=== PATIENT | female | born 1980 | race Caucasian/White ===

== ENCOUNTER 2016-12-03 10:53 | Observation (INO) | payer OTHER ==
[~2016-12-03] VITALS: Ht 165.1 cm; Wt 81.8 kg
[2016-12-03] MEDS: Doxycycline Inj 100 MG in Dextrose 5% Minibag Plus 100 ML IV SCH ×2 (04:00→16:00)
[2016-12-03 10:55] VITALS: BP 118/84; PULSE 72; RESP 16; O2SAT 100
--- NOTE | 2016-12-03 11:19 | ED.REPORT ---
HPI-Abd Pain F Under 40 Date of Service Dec 03, 2016 ED Provider: Winston Hercules DO Pt is a 36 year old female with a hx of ovarian cyst and miscarriage presenting to the ED complaining of intermittent RLQ sharp abd pain onset 1 week ago worsened today. Denies diarrhea, vomiting, nausea, vaginal bleeding, dysuria, or any other symptoms at this time. She reports that her last menstrual period was 2 weeks ago. Nursing Notes Stated Complaint: ABD PAIN Chief Complaint: Female Abdominal Pain Nursing Notes Reviewed: Yes Allergies: Coded Allergies: Penicillins (Verified Allergy, Severe, 04/27/09) Uncoded Allergies: Penicillin (Allergy, Unknown, 07/07/04) Unable to Obtain Active Prescriptions or Reported Meds General Time Seen by MD: 11:14 Chief Complaint Abdominal pain Hx Obtained From: Patient Arrived By: Walk-in Sudden in Onset?: No Onset Occurred: 1 week ago Symptom Duration: Intermittent Progression since Onset: Intermittent Location: : Pelvis: RLQ Quality: Painful Severity: Current: Severe Severity: Maximum: Severe Recent Healthcare: No recent doctor visit, No recent hospitalization Similar Sx Previous: No Past Medical History Past Medical History Ovarian cyst Miscarriage Hx of STD as a teenager Past Surgical History denies Smoking History Never Smoker Social History Alcohol Use: Denies alcohol use Drug Use: Denies drug use Ambulatory Status Independent Review of Systems GI: Reports: Abdominal pain, Denies: Diarrhea, Nausea, Vomiting Female: Denies: Dysuria, Vaginal bleeding - abnl Complete sys rev & neg: except as marked. Physical Exam Initial Vital Signs Vital Signs (First) Date Time Temp Pulse Resp B/P Pulse Ox O2 Delivery O2 Flow Rate FiO2 12/03/16 10:55 35.9 72 16 118/84 100 Room Air Initial VS: Reviewed Head / Eyes: Atraumatic, Normocephalic, PERRL ENT: Mucous membranes moist, Conjunctiva normal, No scleral icterus Extremities: Vascular intact, Neuro intact, No swelling, No tenderness Skin: Warm, Dry, No cyanosis Neurologic: Alert, Oriented, Nonfocal Psychiatric: Mood/affect normal, Behavior normal, Normal thought content General/Constitutional: Awake, Alert, No acute distress, Well appearing Respiratory / Chest: Breath sounds NL, Breath sounds = bilat, No respiratory distress, No rales, No rhonchi, No wheezing Cardiovascular: Heart rate NL, Regular rhythm, Heart sounds NL, Peripheral circulation NL Abdomen: No guarding, No rebound Tenderness to palpation low in the right pelvis Back: Atraumatic, Inspection NL, Full range of motion, Painless range of motion , No CVA tenderness Female Genitourinary: Photoengraving Etcher present, Atraumatic Severe right adnexal tenderness. Mild cervical motion tenderness. Scant mucous. Friable cervix, which bled after culture swab. Interpretation & Diagnostics Interpretation & Diagnostics: Urine Dip: Positive for leukocytes and blood negative. US PELVIC AND TRANSVAGINAL SONOGRAM: IMPRESSION: A collection of material potentially hemorrhage or infection is present the right adnexa, but does not appear to emanate from or directly involve the right ovary. This may represent pyosalpinx, but in the current clinical setting it also could represent loculated appendicitis with periappendiceal abscess formation. Followup by contrast-enhanced CT scanning may be warranted versus proceeding to surgical intervention at this time, depending on the clinical status. Dictated by: Elias Meza M.D. on 12/03/2016 at 13:49 Lab Results Interpretation Result Diagram: 12/03/16 1144 12/03/16 1144 Test 12/03/16 11:44 White Blood Count 12.9th/mm3 (3.8-10.1) Red Blood Count 4.45mil/mm3 (3.90-5.20) Hemoglobin 13.4g/dL (12.0-15.6) Hematocrit 38.9% (35.0-46.0) Mean Corpuscular Volume 87.4fL (81-100) Mean Corpuscular Hemoglobin 30.1pg (27.0-35.0) Mean Corpuscular Hemoglobin Concent 34.4% (32.0-37.0) Red Cell Distribution Width 12.2% (12.3-15.4) Platelet Count 354bil/L (150-400) Neutrophils (%) (Auto) 83.0% (40-74) Lymphocytes (%) (Auto) 10.6% (14-46) Monocytes (%) (Auto) 4.7% (4-12) Eosinophils (%) (Auto) 1.2% (0-5) Basophils (%) (Auto) 0.3% (0-3) Sodium Level 137mEq/L (134-144) Potassium Level 4.3mEq/L (3.5-5.2) Chloride Level 101mEq/L (97-108) Carbon Dioxide Level 22mmol/L (18-29) Blood Urea Nitrogen 16mg/dL (6-20) Creatinine 0.64mg/dL (0.57-1.00) Estimat Glomerular Filtration Rate 151mL/min (>59) Glucose Level 98mg/dL (60-99) Calcium Level 9.5mg/dL (8.5-10.1) Total Bilirubin 0.4mg/dL (0.0-1.2) Aspartate Amino Transf (AST/SGOT) 16U/L (0-50) Alanine Aminotransferase (ALT/SGPT) 11U/L (0-32) Alkaline Phosphatase 93U/L (25-150) Total Protein 7.6g/dL (6.4-8.4) Albumin 4.6g/dL (3.4-5.0) Hold Gould Top Tube Received (Received) CT Abd / Pelvis Interpretation IMPRESSION: No CT evidence of acute appendicitis is seen at the cecum. Posterior to the right ovary there appears to be a somewhat tubular collection of material that is suspicious for representing pyosalpinx when referenced to the ultrasound scanning also performed approximately 1.5 hours earlier. Please correlate clinically-during the ultrasound prominent tenderness was experienced by the patient during sonographic palpation of that area. Dictated by: Elias Meza M.D. on 12/03/2016 at 14:02 Study type: Abdominal CT IV contrast Interpretation / Wet Read by: Interpret - Radiologist Re-Eval/Medical Decision Med Decision/Clinical Course Med Decision/Clinical Course: Suspect Pelvic abscess, pyosalpinx. Will admit for broad-spectrum antibiotics. Re-Evaluation/Progress #1: Time of Eval: 12:23 Patient Status: Condition improved Re-Evaluation/Progress Note: Pt feeling slightly better. Re-Evaluation/Progress #2: Time of Eval: 13:53 Patient Status: Condition improved Re-Evaluation/Progress Note: Performed pelvic exam. Re-Evaluation/Progress #3: Time of Eval: 14:19 Patient Status: Condition improved Re-Evaluation/Progress Note: Discussed plan for admission and CT results. Pt understands and agrees with plan. Consultation : Referral / Consult Name: Jadon Soto MD Call Returned at: 14:14 Transport Medic: Will see patient, Agrees with plan, Accepts admit Note: Gynecology. Admit the pt and put her on antibiotics. Counseled Regarding: Diagnosis, Lab results, Need for follow-up, When/why to return to ED Discharge & Departure Primary Impression: Pyosalpinx Disposition: ADMITTED TO HOSPITAL Discharge Condition All VS Reviewed: Yes Condition: Improved Referrals: Stanislaw Mak MD (PCP) Crit Care Except Billable Proc Time Spent: 30-74 minutes Services Performed: Patient management by me, Time spent at bedside, Reviewing test results Critical Care Notes: See MDM Scribe Attestation Portions of this note were transcribed by Marzena Jaramillo. I, Dr. Hercules personally performed the history, physical exam and medical decision-making; I reviewed and confirmed the accuracy of the information in the transcribed note. Signed by: Nhung Williamson, 12/03/2016 at 1418. copies to: Stanislaw Mak MD, Timothy S DO Dec 03, 2016 11:19 MARZENA JARAMILLO Dec 03, 2016 11:26
[2016-12-03] MEDS ORDERED: oxyCODONE-Acetamin 5-325 mg Tablet PO ONE (11:25)
[2016-12-03 11:55] LABS: BASOPHILS % (AUTO) 0.3 % (0-3); EOSINOPHILS % (AUTO) 1.2 % (0-5); MONOCYTES % (AUTO) 4.7 % (4-12); Mean Corpuscular Hemoglobin 30.1 pg (27.0-35.0); Mean Corpuscular Volume 87.4 fL (81-100); Platelet Count 354 bil/L (150-400)
[2016-12-03 13:09] VITALS: BP 117/62; PULSE 74; RESP 16; O2SAT 100
--- NOTE | 2016-12-03 13:53 | DRSVH ---
PROCEDURE: US PELVIC SONOGRAM + TRANSVAGINAL SONOGRAM INDICATIONS: right pelvic pain, rlq pain TECHNIQUE: Real-time scanning was performed of the pelvic organs, with image documentation. Additional endovagi nal scanning was necessary due to incomplete visualization of the adnexal and endometrial structures by transabdominal scanning. COMPARISON: None. FINDINGS: Transabdominal scanning: Limited scanning through the kidneys shows no hydronephrosis. No pathologi c free abdominal or pelvic fluid. Endovaginal scanning: Uterus: Uterus is normal in size at 3.6 x 4.6 x 7.0 cm, retroverted. The endometrium measures 7.5 m m in combined thickness. Ovaries: The right ovary measures 1.6 x 1.5 x 3.3 cm and the left measures 1.5 x 1.8 x 2.6 cm. Ther e is what appears to be complex fluid/clot extending from the left adnexa, but without an appearance of free flowing fluid. The appearance may be secondary to pyosalpinx. Given the presence within the right lower quadrant appendicitis is a potential alternative cause. IMPRESSION: A collection of material potentially hemorrhage or infection is present the right adnexa , but does not appear to emanate from or directly involve the right ovary. This may represent pyosal pinx, but in the current clinical setting it also could represent loculated appendicitis with periapp endiceal abscess formation. Followup by contrast-enhanced CT scanning may be warranted versus procee ding to surgical intervention at this time, depending on the clinical status. Dictated by: Elias Meza M.D. on 12/03/2016 at 13:49 Approved by: Elias Meza M.D. on 12/03/2016 at 13:52
--- NOTE | 2016-12-03 14:10 | DRSVH ---
PROCEDURE: CT ABDOMEN AND PELVIS WITH CONTRAST ([id number]) INDICATIONS: right pelvic pain TECHNIQUE: After the administration of intravenous contrast, 5 mm thick sections acquired from the diaphragm to the symphysis. 5 mm coronal and sagittal reformats were acquired. For radiation dose reduction, the following was used: automated exposure control, adjustment of mA and/or kV according to patient hardy vincent. COMPARISON: [facility], US, US PELVIC+TRANSVAG, 12/03/2016, 12:26. FINDINGS: Image quality: Excellent. ABDOMEN: Lung bases: Lung bases are clear. Heart size is normal. Solid organs: Liver and spleen are normal in size and enhancement. Gallbladder contains multiple mo derate sized and relatively large gallstones, the largest of which measures up to 1.5 cm, without jacinto dence of acute cholecystitis or biliary obstruction. Additional small gallstones are present immedia tely adjacent. The pancreas enhances normally. No adrenal nodules. Kidneys demonstrate normal size and enhancement, without hydronephrosis. Peritoneum and bowel: Bowel loops demonstrate normal wall thickness and caliber. No free fluid or a ir. Nodes and vessels: No retroperitoneal or mesenteric adenopathy by size criteria. Aorta and inferior vena cava are normal in size. Miscellaneous: No ventral hernias. PELVIS: Genitourinary: Bladder wall thickness is normal. Miscellaneous: No inguinal hernias or adenopathy. Adjacent to the cecum no CT evidence of acute katarzyna endicitis is found. There is, however, what appears to be fluid sequestered at the right ovary and i mmediately adjacent, somewhat tubular in its configuration, potentially a manifestation of pyosalpinx . Bones: No suspicious bony lesions. No vertebral body compression fractures. IMPRESSION: No CT evidence of acute appendicitis is seen at the cecum. Posterior to the right ovary there appears to be a somewhat tubular collection of material that is suspicious for representing py osalpinx when referenced to the ultrasound scanning also performed approximately 1.5 hours earlier. Please correlate clinically-during the ultrasound prominent tenderness was experienced by the patient during sonographic palpation of that area. Dictated by: Elias Meza M.D. on 12/03/2016 at 14:02 Approved by: Elias Meza M.D. on 12/03/2016 at 14:08
[2016-12-03] MEDS ORDERED: Cefotetan Inj 2,000 MG in IV Premix 1 EACH IV ONE (14:15)
[2016-12-03] MEDS ORDERED: Doxycycline Inj 100 MG in Dextrose 5% Minibag Plus 100 ML IV ONE (14:15)
[2016-12-03] MEDS: Ondansetron 2 mg/mL 2 mL Inj IVPUSH PRN ×2 (15:23→18:10)
[2016-12-03 15:28] VITALS: BP 113/58; PULSE 61; O2SAT 99
--- NOTE | 2016-12-03 16:29 | HP ---
[address] [address] HISTORY AND PHYSICAL PATIENT: ELSA LAWLER : 1980 MR#: [id number] ADMIT: 12/03/2016 JOB ID: [id number] ADMISSION DIAGNOSIS: Suspected tubo-ovarian abscess. HISTORY OF PRESENT ILLNESS: The patient is 36 years old, 3, para 2-0-1-2 who presented to the ED with worsening right lower quadrant pain. The pain started nine days ago, sharp in the right lower quadrant, radiates to the left lower quadrant and the back, 9/10 in intensity, intermittent, decreased with heat, increased with moving and increased during the transvaginal ultrasound as well, per patient report. Associated with some nausea and chills. Denied any fever, vomiting, diarrhea, dysuria. Last sexual activity was two weeks ago. New partner. She started to be sexually active with since August. Dr. Lemos is her primary care physician. She had a recent Pap that was within normal limits. Patient's LMP was November 18, 2016. Regular periods. She is not currently using any control. PAST OBSTETRICAL HISTORY: Two full-term pregnancies ended with spontaneous vaginal delivery and one miscarriage. PAST GYNECOLOGIC HISTORY: Prior history of Chlamydia 19 years ago and positive Trichomonas on ED wet mount today. History of abnormal Pap smears. Last Pap was within normal limits. PAST MEDICAL HISTORY: Insignificant. PAST SURGICAL HISTORY: Insignificant. ALLERGIES: PENICILLIN with hives and swelling. SOCIAL HISTORY: Denied any alcohol consumption. Denied any drugs of abuse. Denied any cigarette smoking. LABS: In ED, H and H is 15.4 and 38.9, platelets are 354. White blood count 12.9. Sodium is 137, potassium 4.3, chloride 101, carbon dioxide 22, BUN is 16, creatinine is 0.64, glucose 98, AST 16, ALT 11, with known positive for Trichomonas. Negative for PV, negative for yeast. GC and Chlamydia cultures were collected by the ED physician. EXAMINATION: The patient is alert, oriented x3. Vital signs in triage: Temperature 36.8 degrees centigrade, pulse is 74, respirations are 16, blood pressure is 117/62, pulse ox 100% on room air. Heart is regular rate and rhythm. Positive S1, S2. Lungs clear to auscultation bilaterally. Abdomen: Right lower quadrant tenderness. Sterile speculum exam showed some watery vaginal discharge. Bimanual exam revealed a retroverted uterus, mildly tender. Severe tenderness on right adnexa. No palpated masses or tenderness on the left adnexa. Positive cervical motion tenderness on exam. A pelvic ultrasound showed retroverted uterus 7 x 4.6 x 3.6 cm, endometrial stripe 7.5 mm, right ovary 1.6 x 1.5 x 3.3 cm, left ovary 1.5 x 1.8 x 2.6 cm. Suspected right pyosalpinx. Normal measurements were given on the ultrasound report. This was followed by a CT that showed no evidence of acute appendicitis. ASSESSMENT AND PLAN: 1. Patient is a 36-year-old, 3, para 2-0-1-2 admitted with suspected tubo-ovarian abscesses/pyosalpinx. 2. Will start IV antibiotics, and doxycycline. 3. Positive Trichomonas. Will treat with one dose of Flagyl 2 g. 4. Will discuss with Interventional Radiology team tomorrow if reimaging is recommended depending on the size and accessibility of the suspected pyosalpinx. All of the above was discussed in detail the patient who agreed to the plan. Will continue pain management with Percocet and p.r.n. Toradol for breakthrough pain. The patient agreed to the plan.
--- NOTE | 2016-12-03 16:33 | NUR ---
Admitted to room 1031 from ER alert, still a little uncomfortable, denies nausea, accompanied by mother, VSS.
[2016-12-03 16:35] VITALS: BP 117/71; PULSE 72; RESP 16; O2SAT 98
[2016-12-03] MEDS ORDERED: no home meds (16:45)
[2016-12-03] MEDS: oxyCODONE-Acetamin 5-325 mg Tablet PO PRN (17:06)
[2016-12-03] MEDS: 0.9% Sodium Chloride 1,000 ML IV SCH (18:10)
[2016-12-03 20:45] VITALS: BP 107/69; PULSE 65; RESP 16; O2SAT 97
[2016-12-03] MEDS ORDERED: Ondansetron 2 mg/mL 2 mL Inj IVPUSH PRN (20:50)
[2016-12-04 00:10] VITALS: BP 96/58; PULSE 61; RESP 16; O2SAT 98
[2016-12-04] MEDS: oxyCODONE-Acetamin 5-325 mg Tablet PO PRN ×3 (00:30→21:55)
--- NOTE | 2016-12-04 02:04 | NUR ---
Nausea/pain Pt reporting nausea has subsided since given Zofran after vomiting right before shift change. Pt reporting right sided abdominal pain 5/10 and was needing something intermittent with Percocet to keep pain controlled. paged and ordered Tordal. Tordal per eMAR given and pt was able to sleep until pain woke her up, rating it a 7/10. One tab of Percocet given and pt able to fall back asleep.
[2016-12-04] MEDS: Cefotetan Inj 2,000 MG in IV Premix 1 EACH IV SCH ×2 (03:31→15:56)
[2016-12-04] MEDS: 0.9% Sodium Chloride 1,000 ML IV SCH ×3 (03:31→21:15)
[2016-12-04] MEDS: Doxycycline Inj 100 MG in Dextrose 5% Minibag Plus 100 ML IV SCH ×2 (04:14→17:07)
[2016-12-04 06:40] VITALS: BP 92/59; PULSE 57; RESP 18; O2SAT 99
[2016-12-04 08:33] LABS: BASOPHILS % (AUTO) 0.4 % (0-3); MONOCYTES % (AUTO) 9.3 % (4-12); Mean Corpuscular Hemoglobin 30.3 pg (27.0-35.0); Platelet Count 319 bil/L (150-400)
[2016-12-04 13:39] VITALS: BP 99/62; PULSE 65; RESP 16; O2SAT 97
[2016-12-04 15:18] LABS: APPEARANCE,URINE HAZY (CLEAR,HAZY); COLOR,URINE STRAW (YELLOW); OCCULT BLOOD,URINE TRACE (NEGATIVE); PH,URINE 6.5 (5.0-8.0); UROBILINOGEN,URINE NORMAL (NORMAL)
--- NOTE | 2016-12-04 17:01 | NUR ---
Social Work: Screening D: EMR reviewed. Pt is a 36 y/o female Malgorzata for pyosalpinx per H&P. SW met with pt at bedside to conduct initial screening. Pt was alert and oriented x3. SW explained role and wrote phone number on white board. Pt declined DPOA/advanced directive ppw. Pt's insurance is [email or web address] and PCP is Stanislaw Mak MD. Pt's primary contact is her mother, Tameka Riley ([phone]), and can be contacted for discharge planning. Pt lives with family in [place]. Pt confirmed her mother will provide transport home via POV when pt is medically stable. SW does not anticipate any discharge needs at this time but will continue to follow if needs arise. A: Pt who is independent at baseline. P: Pt confirmed her mother will provide transport home via POV when pt is medically stable. SW does not anticipate any discharge needs at this time but will continue to follow if needs arise. SANCHEZ Grant
--- NOTE | 2016-12-04 17:10 | NUR ---
Nausea/Pain/Urine Intermittent nausea throughout shift has improved this evening. IV Zofran required with AM nausea whereas PO Zofran was effective this evening. Pain has been much better today than yesterday, ranging from a 2/3 out of 10 up to a 6. IV Toradol and PO Percocet given q 6hrs. Dr. Caal will be in to consult pt this evening and will change Toradol to a PO medication per our phone conversation. UA sent and indicated, pt reports her urine is much darker today than yesterday; notified.
[2016-12-04 20:00] VITALS: BP 100/64; PULSE 63; RESP 18; O2SAT 98
--- NOTE | 2016-12-05 01:53 | NUR ---
Pain Pt reporting overall pain is improving and has only needed 1 tab of Percocet at bedtime for pain rated 4/10. Heat pad also helping to reduce abdominal pain. Antibiotics seem to be irritating the vein as pt reported the same "aching pain" with new IV site while antibiotic ran. Pt request to be SL after antibiotic finished. Pt tolerating fluids fine and reports nausea to be under control as well.
[2016-12-05] MEDS: Cefotetan Inj 2,000 MG in IV Premix 1 EACH IV SCH ×2 (03:12→14:15)
[2016-12-05] MEDS: Doxycycline Inj 100 MG in Dextrose 5% Minibag Plus 100 ML IV SCH ×2 (03:48→15:26)
[2016-12-05] MEDS: oxyCODONE-Acetamin 5-325 mg Tablet PO PRN ×3 (03:54→23:22)
[2016-12-05 04:46] VITALS: BP 108/69; PULSE 58; RESP 16; O2SAT 98
[2016-12-05] MEDS: 0.9% Sodium Chloride 1,000 ML IV SCH ×2 (07:15→17:15)
--- NOTE | 2016-12-05 10:22 | NUR ---
Social Work: Readiness for Discharge D: EMR reviewed. Pt is on day 2 of hospitalization for pyosalpinx per H&P. Per RN in multidisciplinary rounds, pt is nearing discharge as pain is controlled. Discharge orders are not active at this time. Pt lives with family in [place] and is independent at baseline. Pt's mother will provide transport home via POV when pt is medically stable. SW does not anticipate any discharge needs at this time but will continue to follow if needs arise. A: Pt who is independent at baseline. P: Pt's mother will provide transport home via POV when pt is medically stable. SW does not anticipate any discharge needs at this time but will continue to follow if needs arise. Charleen Bacon MSW
[2016-12-05 11:10] VITALS: BP 100/64; PULSE 62; RESP 12; O2SAT 97
--- NOTE | 2016-12-05 17:33 | NUR ---
Doxycycline Per Ruby, pharmacist, ok to infuse over 1-4 hours. Pt complaining of severe pain at old IV site during and after previous dose. Also stated that arm had been swollen and purple yesterday. Upon assessment, L arm and hand (IV in L hand) normal appearing, with no discoloration or swelling. However, pt complained of severe pain, in fact started and cried with saline flush. Discontinued L hand IV and started new IV in L AC. Infused next doxycycline over 4 hours, with NS running concurrently. Pt denies pain or discomfort with infusion.
[2016-12-05 20:52] VITALS: BP 101/62; PULSE 66; RESP 18; O2SAT 96
[2016-12-06] MEDS: Cefotetan Inj 2,000 MG in IV Premix 1 EACH IV SCH (03:06)
[2016-12-06] MEDS: 0.9% Sodium Chloride 1,000 ML IV SCH ×2 (03:15→13:15)
[2016-12-06] MEDS: Doxycycline Inj 100 MG in Dextrose 5% Minibag Plus 100 ML IV SCH (03:50)
--- NOTE | 2016-12-06 04:37 | NUR ---
Pain Pt reporting back and abdominal pain up to 12/09 and took 1 tab of Percocet which has been adequate relief per pt. Pt also has Kpad applied to back. Doxycycline is infusing at 25ml/hr with NS at 75ml/hr concurrently to dilute and reduce pain at IV site in left AC. Site does not appear red or swollen and is not hard to touch. Warm pack placed on site and pt reports this "to help relax the ache."
[2016-12-06] MEDS: oxyCODONE-Acetamin 5-325 mg Tablet PO PRN ×2 (05:26→13:19)
[2016-12-06 06:02] VITALS: BP 97/60; PULSE 64; RESP 18; O2SAT 99
[2016-12-06 10:27] LABS: BASOPHILS % (AUTO) 0.7 % (0-3); EOSINOPHILS % (AUTO) 3.3 % (0-5); MONOCYTES % (AUTO) 8.2 % (4-12); Mean Corpuscular Hemoglobin 30.5 pg (27.0-35.0); Mean Corpuscular Volume 88.9 fL (81-100); NEUTROPHILS % (AUTO) 65.6 % (40-74); Platelet Count 377 bil/L (150-400)
--- NOTE | 2016-12-06 10:27 | PCM.DIGYN ---
Surgical Discharge Instruction Dates of Hospitalization Date of Hospital Admission Dec 03, 2016 at 16:01 Providers Admitting Physician: Jadon Soto MD Primary Care Physician: Stanislaw Mak MD Attending Physician: Jadon Soto MD Diet Discharge Diet: No restrictions Activity Discharge Activity-General: Try not to overdue, Balance rest and activity, Activity as pain allows, No driving while taking narcotic Dressing and Incisional Care Hygiene: May shower Additional Instructions Discharge Instructions Please call with severe pain, temperature greater than 100.5, heavy vaginal bleeding, malodorous vaginal discharge, worsening fevers or chills Follow Up Plan Follow-up Provider (F9): Melinda Heck MD Follow-up appointment: Weeks (2) Call your provider for: Fever, Chills, Shortness of breath, Heavy vaginal bleeding, Increasing pain Melinda Heck MD Dec 06, 2016 10:27
--- NOTE | 2016-12-06 10:28 | DIS ---
[address] [address] DISCHARGE SUMMARY PATIENT: ELSA LAWLER : 1980 MR#: [id number] ADMIT: 12/03/2016 JOB ID: [id number] DIS: 12/06/2016 ADMISSION DIAGNOSIS: Suspected tubo-ovarian abscess. DISCHARGE DIAGNOSIS: Suspected tubo-ovarian abscess. PROCEDURE PERFORMED: None. REASON FOR ADMISSION: This is a 36-year-old, -0-1-2 female, who presented to the emergency department on the complaining of right lower quadrant pain that had been going on for approximately a week and a half. Ultrasound completed in the emergency department showed a suspected right pyosalpinx, and the CT abdomen and pelvis was completed following this which showed no evidence of appendicitis and confirmation of the suspected pyosalpinx. The patient was admitted for IV pain medication, and she was, of note, noted to be positive for Trichomonas in the emergency department. She also had a remote history of Chlamydia in her teenage years. HOSPITAL COURSE: The patient was admitted on the to receive IV antibiotics. She did receive 2 g of Flagyl orally and was started on cefotetan and doxycycline IV. On the day of admission, her white count was noted to be 12.9, her hemoglobin was 13.4, and her platelet count was 354. By the morning of the , her white count had dropped down to 7.5, her platelets were 319, her hemoglobin was 12.1. She was observed until the , and she was being considered for discharge on the , but she had a T-max of 37.0, and had some rigidity on examination, so she was kept until the . By the , she had noted that her pain was improving while on the IV antibiotics. She denied any fevers or chills overnight, and denied any abnormal discharge or bleeding. She was tolerating a regular diet, and her nausea which had been present for the first two days of her admission was resolving. CBC was collected on the prior to discharge, and she was deemed stable for discharge on hospital day four. PHYSICAL EXAMINATION ON THE DAY OF DISCHARGE: Today, her temperature is 36.5, her pulse is 64, respiratory rate is 18. Her blood pressure is 97/62. She is satting 99% on room air. In general, she is awake, alert, oriented, in no acute distress. Her abdomen is soft. There is mild tenderness to palpation in the right lower quadrant. There is no rebound or guarding on examination. Her extremities show no tenderness or edema. INSTRUCTIONS AT DISCHARGE: The patient was changed from an IV antibiotic regimen to an oral one, and was discharged home on Flagyl and Levaquin. She was asked to continue this for at least two weeks and to follow up in our clinic for repeat ultrasound, at which point, we would evaluate for improvement in her pyosalpinx. She is asked to notify us for any worsening fevers, chills, increasing pain, heavy vaginal bleeding or malodorous discharge. All questions and concerns of the patient were answered. She was deemed stable for discharge on hospital day #4. GIOVANNI
[2016-12-06] MEDS ORDERED: OXYC1TAB24 PO (10:30)
[2016-12-06] MEDS ORDERED: DOCU-41 PO (10:30)
[2016-12-06] MEDS ORDERED: LEVO500T16 PO (10:30)
[2016-12-06] MEDS ORDERED: IBUP800T28 PO (10:30)
[2016-12-06] MEDS ORDERED: METR500T19 PO (10:30)
--- NOTE | 2016-12-06 10:38 | NUR ---
Social Work: Discharge D: EMR reviewed. Pt is on day 2 of hospitalization for pyosalpinx per H&P. Pt to discharge today. Pt lives with family in [place] and is independent at baseline. SW met with pt at bedside regarding discharge plan. Pt denied any questions or concerns related to discharge. Pt confirmed her mother will provide transport home via POV. No discharge needs identified. A: Pt who is independent at baseline. P: Pt's mother will provide transport home via POV. No discharge needs identified. Charleen Bacon MSW
[2016-12-06 13:54] VITALS: BP 116/75; PULSE 60; RESP 18; O2SAT 98
--- NOTE | 2016-12-06 14:04 | NUR ---
Discharge Pt d/c'd from room 1031 at 1405 home via private vehicle with family. All discharge teaching and instructions done with the pt. Pt stated that she didn't have any further questions about discharge. Pt had increased vaginal bleeding upon getting up to the bathroom. Bleeding was not heavier than an normal period per pt report. MD paged and aware. Pt educated to monitor and to call MD if she has fever, chills or bleeding heavier than a period. IV d/c'd intact. Rx hard copy with pt.
== END 2016-12-06 15:45 | disposition home or self-care (01) ==
LOC: SED 10:53 → OSC 16:01
PROVIDERS: ADMIT Obstetrics & Gynecology; ATTEND Obstetrics & Gynecology
DX: N70.91 Salpingitis, unspecified (principal); A59.09 Other urogenital trichomoniasis; N83.209 Unspecified ovarian cyst, unspecified side; Z86.19 Personal history of other infectious and parasitic diseases
CPT/HCPCS: 36415; 74177; 76830; 76856; 80053; 81000; 81025; 85025; 87086; 87210; 87491; 87591; 96365; 96366; 96372; 96375; 96376; 99285; G0378; J1885; J2270; J2405; J7030; Q9967